=== PATIENT | female | born 1945 | race Caucasian/White ===

== ENCOUNTER 2016-08-14 14:36 | Emergency (ER) | payer MEDICARE, BC ==
[2016-08-14] MEDS ORDERED: MECLIZINE HCL 25 MG TABLET PO ONE (14:53)
[2016-08-14 14:54] LABS: ABSOLUTE LYMPHOCYTES (AUTO) 0.9 10^3/uL (0.5-4.7); ABSOLUTE MONOCYTES (AUTO) 0.2 10^3/uL (0.1-1.4); ABSOLUTE NEUT (AUTO) 5.7 10^3/uL (1.7-8.2); BASOPHILS % (AUTO) 0.6 % (0-2); EOSINOPHILS % (AUTO) 0.2 % (0-6); HEMATOCRIT 37.8 % (36.0-47.0); HEMOGLOBIN 12.8 g/dL (12.0-15.5); HGB HCT DIFFERENCE 0.6; LYMPHOCYTES % (AUTO) 12.7 % (13-45); MEAN CORPUSCULAR HEMOGLOBIN 28.9 pg (27.0-33.4); MEAN CORPUSCULAR HGB CONC 33.8 g/dL (32.0-36.0); MEAN CORPUSCULAR VOLUME 86 fl (80-97); MONOCYTES % (AUTO) 2.8 % (3-13); RED BLOOD COUNT 4.42 10^6/uL (3.72-5.28); SEGMENTED NEUTROPHILS % (AUTO) 83.7 % (42-78); WHITE BLOOD COUNT 6.8 10^3/uL (4.0-10.5)
[2016-08-14] MEDS ORDERED: NORMAL SALINE 500 ML IV ONE ×2 (14:56→16:41)
--- NOTE | 2016-08-14 14:56 | ER Document Report ---
ED General - General Stated Complaint: DIZZINESS TRAVEL OUTSIDE OF THE [place] IN LAST 30 DAYS: No - HPI Patient complains to provider of: dizziness and near-syncope nausea vomiting Notes: Patient coming in for nausea vomiting or syncopal episode dizziness. Patient states this morning workup took an Ultram however states her symptoms were ongoing for the ultrasound but worse at the taken Ultram. Patient states she has vomited multiple times. Patient states taking Ultram as that she is 4 weeks postop from back surgery. Patient otherwise states whenever she is milligrams sitting up states when she becomes dizzy. Patient denies any fevers chills diarrhea. Denies any sick contacts. Denies any recent travel. - Related Data Allergies/Adverse Reactions: codeine Allergy (Verified 08/14/16 15:54) Past Medical History - Social History Smoking Status: Unknown if Ever Smoked Family History: Reviewed & Not Pertinent - Past Medical History Cardiac Medical History: Reports: Hx Hypertension Pulmonary Medical History: Reports: Hx Asthma Past Surgical History: Reports: Hx Cholecystectomy, Hx Hysterectomy, Hx Orthopedic Surgery - L rotor cuff - Immunizations Hx Diphtheria, Pertussis, Tetanus Vaccination: Yes Review of Systems - Review of Systems Constitutional: No symptoms reported EENT: No symptoms reported Cardiovascular: Syncope Respiratory: No symptoms reported Gastrointestinal: No symptoms reported Genitourinary: No symptoms reported Female Genitourinary: No symptoms reported Musculoskeletal: No symptoms reported Skin: No symptoms reported Hematologic/Lymphatic: No symptoms reported Neurological/Psychological: No symptoms reported -: Yes All other systems reviewed and negative Physical Exam - Vital signs Vitals: Resp BP Pulse Ox 25 H 194/88 H 100 08/14/16 14:42 08/14/16 14:42 08/14/16 14:42 Interpretation: Normal - General General appearance: Appears well, Alert - HEENT Head: Normocephalic, Atraumatic Eyes: Normal Pupils: PERRL - Respiratory Respiratory status: No respiratory distress Chest status: Nontender Breath sounds: Normal Chest palpation: Normal - Cardiovascular Rhythm: Regular Heart sounds: Normal auscultation Murmur: No - Abdominal Inspection: Normal Distension: No distension Bowel sounds: Normal Tenderness: Nontender Organomegaly: No organomegaly - Back Back: Normal, Nontender - Extremities General upper extremity: Normal inspection, Nontender, Normal color, Normal ROM , Normal temperature General lower extremity: Normal inspection, Nontender, Normal color, Normal ROM , Normal temperature, Normal weight bearing. No: Mary's sign - Neurological Neuro grossly intact: Yes Cognition: Normal Orientation: AAOx4 Leta Coma Scale Eye Opening: Spontaneous [place] Coma Scale Verbal: Oriented Leta Coma Scale Motor: Obeys Commands [place] Coma Scale Total: 15 Speech: Normal Motor strength normal: LUE, RUE, LLE, RLE Sensory: Normal - Psychological Associated symptoms: Normal affect, Normal mood - Skin Skin Temperature: Warm Skin Moisture: Dry Skin Color: Normal Course - Re-evaluation Re-evalutation: 08/14/16 14:55 /Patient would need to get a CTA of her chest. Patient was to be sedated for the CTA. Spent patient that we are not doing sedation today is that she is complaining of dizziness I did not want to further cause her any harm her symptoms. Patient will receive IV fluids and urinalysis will be performed. 08/14/16 21:40 Patient signed a refusal treatment form as she was refusing to have a CTA. Patient has ambulated multiple times bathroom without difficulty. Patient does continue to complain of some nausea however she is able to tolerate orals at bedside. Repeat troponin is negative. At this time no clear etiology for the patient's symptoms no signs of sepsis severe infection troponins are negative. Patient was instructed to perform the Jason maneuver which he arrives home. Handout was given to the patient. Patient was also will be treated with Zofran for nausea meclizine for dizziness. Patient discharged home agrees to plan. - Vital Signs Vital signs: Temp Pulse Resp BP Pulse Ox 16 163/75 H 100 08/14/16 19:00 08/14/16 18:20 08/14/16 19:00 - Laboratory Result Diagrams: 08/14/16 14:47 08/14/16 14:47 Laboratory results interpreted by me: 08/14/16 08/14/16 08/14/16 14:47 14:47 18:19 Seg Neutrophils % 83.7 H Lymphocytes % 12.7 L Monocytes % 2.8 L Glucose 125 H Urine Blood SMALL H Discharge - Discharge Clinical Impression: Dizziness Nausea & vomiting Qualifiers: Vomiting type: unspecified Vomiting Intractability: unspecified Qualified Code( s): R11.2 - Nausea with vomiting, unspecified Instructions: Vertigo ([facility]), Meclizine ([facility]), Vomiting ([facility]), Near Syncopal Episode ([facility]) Additional Instructions: Take medication as prescribed. Please follow-up with the doctors provided or your primary care physician. Please drink plenty of water to stay hydrated. Please avoid any food with fat grease or oil. Pleases try the Jason maneuver in your discharge handout Prescriptions: Meclizine HCl [Antivert 25 mg Tablet] 25 mg PO TID PRN #21 tablet PRN Reason: Ondansetron [Zofran Odt 4 mg Tablet] 1 - 2 tab PO Q4H PRN #28 tab.rapdis PRN Reason: For Nausea/Vomiting
[2016-08-14 15:03] LABS: PROTHROMBIN TIME 12.3 SEC (11.4-15.4)
[2016-08-14] MEDS ORDERED: ONDANSETRON HCL INJ/PF 4 MG/2 ML SDV IV ONE (15:03)
[2016-08-14 15:11] LABS: ALANINE AMINOTRANSFERASE 18 U/L (9-52); ALBUMIN 4.2 g/dL (3.5-5.0); ALKALINE PHOSPHATASE 105 U/L (38-126); ANION GAP 14 (5-19); ASPARTATE AMINO TRANSFERASE 20 U/L (14-36); BILIRUBIN,DIRECT 0.1 mg/dL (0.0-0.4); BILIRUBIN,TOTAL 0.4 mg/dL (0.2-1.3); BLOOD UREA NITROGEN 11 mg/dL (7-20); CALCIUM 9.1 mg/dL (8.4-10.2); CARBON DIOXIDE 24 mmol/L (22-30); CHLORIDE 104 mmol/L (98-107); CREATINE KINASE 65 U/L (30-135); GLUCOSE 125 mg/dL (75-110); LIPASE 59.7 U/L (23-300); SODIUM 141.6 mmol/L (137-145); TOTAL PROTEIN 7.3 g/dL (6.3-8.2)
[2016-08-14 15:23] LABS: CREATINE KINASE MB 0.71 ng/mL (<4.55)
[2016-08-14 15:33] LABS: TROPONIN I < 0.012 ng/mL
[2016-08-14] MEDS ORDERED: METOCLOPRAMIDE HCL INJ/PF 10 MG/2 ML SDV IV ONE (16:26)
[2016-08-14] MEDS ORDERED: DIAZEPAM 2 MG TABLET PO ONE (16:36)
[2016-08-14] MEDS ORDERED: PROMETHAZINE HCL INJ 25 MG/1 ML VIAL IM ONE (18:10)
[2016-08-14 18:34] LABS: APPEARANCE,URINE CLEAR; BILIRUBIN,URINE NEGATIVE (NEGATIVE); GLUCOSE, URINE NEGATIVE (NEGATIVE); KETONES,URINE NEGATIVE (NEGATIVE); LEUKOCYTE ESTERASE,URINE NEGATIVE (NEGATIVE); NITRITE,URINE NEGATIVE (NEGATIVE); PROTEIN,URINE NEGATIVE (NEGATIVE); URINE SPECIFIC GRAVITY 1.002; UROBILINOGEN,URINE NEGATIVE mg/dL (<2.0)
[2016-08-14 19:34] VITALS: BP 163/75
--- NOTE | 2016-08-14 19:54 | EKG REPORT ---
SEVERITY:- ABNORMAL ECG - SINUS RHYTHM PROBABLE LEFT ATRIAL ABNORMALITY LEFT AXIS DEVIATION NONSPECIFIC ST-T CHANGES ANTERIOR LEADS. : Confirmed by: Haja Medina MD 14-Aug-2016 19:54:24
[2016-08-14] MEDS ORDERED: ONDANSETRON ODT 4 MG TAB (6 TAB/DSPK) PO PRN (20:40)
== END 2016-08-14 21:23 | disposition home or self-care (01) ==
LOC: ER 14:36
DX: R42 Dizziness and giddiness (principal); R11.2 Nausea with vomiting, unspecified
CPT/HCPCS: 93005; 99285; 96372; 96361; 96374; 96375; 36415; 82553; 82550; 83690; 85025; 85610; 80053; 81001; 84484; 71010; 93010; A9270 ×3; J2765; J2550; J2405; J7040; J3490

== ENCOUNTER → 2016-11-20 | Outpatient (CLI) | payer MEDICARE, BC ==
--- NOTE | 2016-11-21 17:01 | XCELERA REPORT ---
[address] [address] Lower Extremity Venous Evaluation Name: JENNIFER GARCIA Age: 71 yrs Gender: Female : 1945 Patient Status: Outpatient Patient Location: Study Date: 11/20/2016 04:28 PM Procedure: Color flow and duplex imaging of the veins of the left lower extremity as well as the right Common Femoral vein. Reason For Study: LEFT CALF PAIN Ordering Physician: CAROLIN REESE PA-C Performed By: Remberto Henry Right Sided Venous Evaluation The right common femoral vein is fully compressible. Spontaneous and phasic flow is present in the right common femoral vein. Left Sided Venous Evaluation Normal vessel filling wall to wall, compression and augmentation as well as Colour flow down to the infrageniculate veins. Interpretation Summary No duplex evidence of DVT or obstruction in the left lower extremity nor in the right Common Femoral vein. : CAROLIN REESE PA-C > Jesus Duarte
== END ==
LOC: SP 16:15
PROVIDERS: ATTEND Physician Assistant
DX: M79.662 Pain in left lower leg (principal)
CPT/HCPCS: 93971

== ENCOUNTER 2017-09-04 15:18 | Emergency (ER) | payer MEDICARE, BC ==
[2017-09-04] MEDS ORDERED: ONDANSETRON HCL INJ/PF 4 MG/2 ML SDV IV ONE (15:44)
[2017-09-04] MEDS ORDERED: NORMAL SALINE 1000 ML 1,000 ML IV ONE (15:44)
--- NOTE | 2017-09-04 15:46 | ER Document Report ---
ED Medical Screen (RME) - General Chief Complaint: Nausea/Vomiting Stated Complaint: VOMITING, DIARRHEA Time Seen by Provider: 09/04/17 15:39 Notes: 72-year-old female patient with onset morning about 3 AM of nausea vomiting diarrhea. She had vomiting about every 30 minutes for the next 20 hours. Her last vomiting was just after midnight early this morning. She continues to be quite nauseous. She has tried to drink only a half of a soda today. She is concerned about becoming dehydrated. There is no fever, the diarrhea is not much of a problem. I have greeted and performed a rapid initial assessment of this patient. A comprehensive ED assessment and evaluation of the patient, analysis of test results and completion of the medical decision making process will be conducted by additional ED providers. TRAVEL OUTSIDE OF THE [place] IN LAST 30 DAYS: No - Related Data Allergies/Adverse Reactions: codeine Allergy (Verified 09/04/17 15:39) Past Medical History - Social History Chew tobacco use (# tins/day): No Frequency of alcohol use: None Drug Abuse: None - Past Medical History Cardiac Medical History: Reports: Hx Hypertension Pulmonary Medical History: Reports: Hx Asthma Renal/ Medical History: Denies: Hx Peritoneal Dialysis Past Surgical History: Reports: Hx Cholecystectomy, Hx Hysterectomy, Hx Orthopedic Surgery - L rotor cuff - Immunizations Hx Diphtheria, Pertussis, Tetanus Vaccination: Yes Physical Exam - Vital signs Vitals: Temp Pulse BP Pulse Ox 98.3 F 71 141/59 H 96 09/04/17 15:30 09/04/17 15:30 09/04/17 15:30 09/04/17 15:30 Course - Vital Signs Vital signs: Temp Pulse Resp BP Pulse Ox 98.3 F 71 141/59 H 96 09/04/17 15:30 09/04/17 15:30 09/04/17 15:30 09/04/17 15:30
--- NOTE | 2017-09-04 16:16 | ER Document Report ---
ED General - General Chief Complaint: Nausea/Vomiting Stated Complaint: VOMITING, DIARRHEA Time Seen by Provider: 09/04/17 15:39 Mode of Arrival: Ambulatory Information source: Patient Notes: Patient presents emergency department with complaints of nausea vomiting diarrhea since . She reports last time she vomited was early this morning at 0030 and last diarrhea episode was last night at approximately 2330. She reports she is nauseated. She reports she has had half a can of Sprite. Has not had anything . Complains of some cramping. Reports nobody else at home is sick. Denies other symptoms such as cough chest pain pain with void urinary frequency. Patient looks good, nontoxic looking TRAVEL OUTSIDE OF THE [place] IN LAST 30 DAYS: No - HPI Onset: Other Onset/Duration: Sudden, Persistent Quality of pain: Cramping Severity: Mild Pain Level: 2 Associated symptoms: Diarrhea, Nausea, Vomiting Exacerbated by: Denies Relieved by: Denies Similar symptoms previously: No Recently seen / treated by doctor: No - Related Data Allergies/Adverse Reactions: codeine Allergy (Verified 09/04/17 15:39) Past Medical History - General Information source: Patient Last Menstrual Period: hyst - Social History Smoking Status: Never Smoker Chew tobacco use (# tins/day): No Frequency of alcohol use: None Drug Abuse: None Lives with: Family Family History: Reviewed & Not Pertinent Patient has suicidal ideation: No Patient has homicidal ideation: No - Past Medical History Cardiac Medical History: Reports: Hx Hypertension Pulmonary Medical History: Reports: Hx Asthma Renal/ Medical History: Denies: Hx Peritoneal Dialysis Past Surgical History: Reports: Hx Cholecystectomy, Hx Hysterectomy, Hx Orthopedic Surgery - L rotor cuff - Immunizations Hx Diphtheria, Pertussis, Tetanus Vaccination: Yes Review of Systems - Review of Systems Notes: Review HPI for review of systems., All other systems negative Physical Exam - Vital signs Vitals: Temp Pulse BP Pulse Ox 98.3 F 71 141/59 H 96 09/04/17 15:30 09/04/17 15:30 09/04/17 15:30 09/04/17 15:30 - Notes Notes: PHYSICAL EXAMINATION: GENERAL: Well-appearing and in no acute distress HEAD: Atraumatic, normocephalic. EYES: Pupils equal round, extraocular movements intact, sclera anicteric, conjunctiva are normal. ENT: nares patent, oropharynx clear without exudates. Moist mucous membranes. NECK: Normal range of motion, supple without lymphadenopathy LUNGS: CTAB and equal. No wheezes rales or rhonchi. HEART: Regular rate and rhythm without murmurs ABDOMEN: Soft, no tenderness. No guarding, no rebound BACK: Denies pain EXTREMITIES: Normal range of motion, no pitting edema. No cyanosis. NEUROLOGICAL: Cranial nerves grossly intact. Normal sensory/motor exams. PSYCH: Normal mood, normal affect. SKIN: Warm, Dry, normal turgor, no rashes or lesions noted Course - Re-evaluation Re-evalutation: 09/04/17 Labs unremarkable. IV fluids and nausea medicine given patient reports no further nausea. No vomiting or diarrhea. Patient taking p.o. fluids. She was instructed on labs instructed to follow-up with primary care provider she was instructed on medications and return to ED if vomiting and diarrhea return. She verbalized understanding. - Vital Signs Vital signs: Temp Pulse Resp BP Pulse Ox 97.5 F 72 17 143/62 H 98 09/04/17 17:16 09/04/17 17:16 09/04/17 17:16 09/04/17 17:16 09/04/17 17:16 - Laboratory Result Diagrams: 09/04/17 16:03 09/04/17 16:03 Laboratory results interpreted by me: 09/04/17 09/04/17 16:03 16:03 RDW 14.3 H Urine Urobilinogen 2.0 H Discharge - Discharge Clinical Impression: Nausea and vomiting Qualifiers: Vomiting type: unspecified Vomiting Intractability: non-intractable Qualified Code(s): R11.2 - Nausea with vomiting, unspecified Diarrhea Qualifiers: Diarrhea type: unspecified type Qualified Code(s): R19.7 - Diarrhea, unspecified Condition: Stable Disposition: HOME, SELF-CARE Instructions: Antinausea Medication ([facility]), Diarrhea, Nonspecific ([facility]), Intravenous (IV) Fluids ([facility]), Vomiting ([facility]) Additional Instructions: *You have been evaluated for nausea/vomiting/diarrhea *Take medication as prescribed for nausea *Over the counter anti-diarrheal as indicated *Ensure adequate fluid intake as discussed to prevent dehydration *Follow up with a primary care provider within 5 days for recheck *Return to ED for worsening condition, changes, needs, return of vomiting and diarrhea Forms: Elevated Blood Pressure Referrals: CLAUDIA DELATORRE MD [Primary Care Provider] - Follow up as needed
[2017-09-04 16:23] LABS: ABSOLUTE EOSINOPHILS # (AUTO) 0.1 10^3/uL (0.0-0.6); ABSOLUTE LYMPHOCYTES (AUTO) 1.4 10^3/uL (0.5-4.7); ABSOLUTE MONOCYTES (AUTO) 0.4 10^3/uL (0.1-1.4); ABSOLUTE NEUT (AUTO) 2.6 10^3/uL (1.7-8.2); BASOPHILS % (AUTO) 0.6 % (0-2); EOSINOPHILS % (AUTO) 1.5 % (0-6); HEMOGLOBIN 13.8 g/dL (12.0-15.5); LYMPHOCYTES % (AUTO) 30.1 % (13-45); MEAN CORPUSCULAR HGB CONC 33.7 g/dL (32.0-36.0); MEAN CORPUSCULAR VOLUME 86 fl (80-97); MONOCYTES % (AUTO) 9.5 % (3-13); PLATELET COUNT 306 10^3/uL (150-450); RED BLOOD COUNT 4.77 10^6/uL (3.72-5.28); RED CELL DISTRIBUTION WIDTH 14.3 % (11.5-14.0); SEGMENTED NEUTROPHILS % (AUTO) 58.3 % (42-78); TOTAL CELLS COUNTED % (AUTO) 100 %; WHITE BLOOD COUNT 4.5 10^3/uL (4.0-10.5)
[2017-09-04 16:32] LABS: APPEARANCE,URINE SLIGHTLY-CLOUDY; BILIRUBIN,URINE NEGATIVE (NEGATIVE); COLOR,URINE YELLOW; GLUCOSE, URINE NEGATIVE (NEGATIVE); KETONES,URINE NEGATIVE (NEGATIVE); LEUKOCYTE ESTERASE,URINE NEGATIVE (NEGATIVE); NITRITE,URINE NEGATIVE (NEGATIVE); PROTEIN,URINE NEGATIVE (NEGATIVE); URINE SPECIFIC GRAVITY 1.025
[2017-09-04 16:35] LABS: ALANINE AMINOTRANSFERASE 29 U/L (9-52); ALBUMIN 4.1 g/dL (3.5-5.0); ALKALINE PHOSPHATASE 96 U/L (38-126); ANION GAP 11 (5-19); ASPARTATE AMINO TRANSFERASE 33 U/L (14-36); BILIRUBIN,DIRECT 0.3 mg/dL (0.0-0.4); BILIRUBIN,TOTAL 0.3 mg/dL (0.2-1.3); BLOOD UREA NITROGEN 17 mg/dL (7-20); CALCIUM 9.2 mg/dL (8.4-10.2); CARBON DIOXIDE 30 mmol/L (22-30); CHLORIDE 102 mmol/L (98-107); GLUCOSE 101 mg/dL (75-110); POTASSIUM 3.6 mmol/L (3.6-5.0); SODIUM 142.6 mmol/L (137-145); TOTAL PROTEIN 7.4 g/dL (6.3-8.2)
[2017-09-04] MEDS ORDERED: ONDANSETRON ODT 4 MG TAB (6 TAB/ER DISP) PO PRN (16:57)
[2017-09-04 17:17] VITALS: BP 143/62
== END 2017-09-04 17:19 | disposition home or self-care (01) ==
LOC: ER 15:18
DX: R11.2 Nausea with vomiting, unspecified (principal); R19.7 Diarrhea, unspecified; R25.2 Cramp and spasm; I10 Essential (primary) hypertension; J45.909 Unspecified asthma, uncomplicated; Z90.49 Acquired absence of other specified parts of digestive tract; Z90.710 Acquired absence of both cervix and uterus; Z88.5 Allergy status to narcotic agent
CPT/HCPCS: 99283; 96361; 96374; 36415; 85025; 80053; 81001; J2405; J7030; A9270

== ENCOUNTER 2017-11-30 15:22 | Emergency (ER) | payer MEDICARE, BC ==
[2017-11-30 15:33] VITALS: BP 155/58
[2017-11-30] MEDS ORDERED: TRAMADOL HCL 50 MG TABLET PO ONE (15:50)
--- NOTE | 2017-11-30 15:54 | ER Document Report ---
ED Fall - General Chief Complaint: Fall Injury Stated Complaint: FALL/HIP INJURY Time Seen by Provider: 11/30/17 15:47 TRAVEL OUTSIDE OF THE [place] IN LAST 30 DAYS: No - HPI Notes: 72-year-old female presents status post fall with posterior lateral back and right hip injury. Sometime around 630 this morning patient was trying to climb back into a recliner in her 's room, he is staying in the hospital, when she fell off and struck her right hip and right lateral upper back. Complains of sudden onset severe right-sided pain, throbbing achy sharp, worse with motion. Able to bear weight. No head injury, no loss consciousness. No other modifying factors, no other associated symptoms, no other provocative or palliative factors. - Related data Allergies/Adverse Reactions: codeine Allergy (Verified 09/04/17 15:39) Past Medical History - Social History Smoking Status: Smoker,Current Status Unk Family History: Reviewed & Not Pertinent - Past Medical History Cardiac Medical History: Reports: Hx Hypertension Pulmonary Medical History: Reports: Hx Asthma Renal/ Medical History: Denies: Hx Peritoneal Dialysis Past Surgical History: Reports: Hx Cholecystectomy, Hx Hysterectomy, Hx Orthopedic Surgery - L rotor cuff - Immunizations Hx Diphtheria, Pertussis, Tetanus Vaccination: Yes Review of Systems - Review of Systems Notes: Review of systems as in history of present illness, otherwise no significant headache, chest pain, abdominal pain. Physical Exam - Vital signs Vitals: Temp Pulse Resp BP Pulse Ox 97.6 F 65 14 155/58 H 98 11/30/17 15:31 11/30/17 15:31 11/30/17 15:31 11/30/17 15:31 11/30/17 15:31 - Notes Notes: General: Well-developed, well-nourished HEENT: Normocephalic. No external trauma noted. No alvarenga sign, no hemotympanum. Mucosa is moist. No intraoral trauma. Neck: Midline trachea, no JVD. No midline cervical spine tenderness. No step- off or deformity. Chest: Normal excursion, no accessory muscle use. No gross trauma. Abdomen: Soft, nondistended. Nontender. No bruising. Pelvis: Stable. Vascular: Strong and symmetric upper and lower extremity pulses. Well-perfused extremities. Motor: Normal tone and power. Neurologic: Alert, nonfocal. Sensation symmetric and intact. Skin: No significant lacerations or purpura. Extremities: No cyanosis. No significant injury noted. Back: Right posterior lateral back tenderness noted about the ribs 7 and 8. No bruising or crepitation or step-off. Hip showed right greater trochanter tenderness, range of motion intact. Course - Re-evaluation Re-evalutation: 11/30/17 15:54 Appearing female sprain versus contusion versus fracture. Will obtain plain films of the chest/thorax, hip, treat pain, reassess. 11/30/17 16:40 Plain films of the chest and hip show no evidence of fracture. Patient received a single dose of Wellbutrin analgesics with substantial improvement. Discharged home with a prescription for NSAIDs, outpatient follow-up. - Vital Signs Vital signs: Temp Pulse Resp BP Pulse Ox 97.6 F 65 14 155/58 H 98 11/30/17 15:31 11/30/17 15:31 11/30/17 15:31 11/30/17 15:31 11/30/17 15:31 Discharge - Discharge Clinical Impression: Contusion, hip Qualifiers: Encounter type: initial encounter Laterality: right Qualified Code(s): S70.01XA - Contusion of right hip, initial encounter Contusion of thoracic wall Qualifiers: Encounter type: initial encounter Contusion of thoracic wall detail: back wall of thorax Laterality: right Qualified Code(s): S20.221A - Contusion of right back wall of thorax, initial encounter Instructions: Contusion ([facility]) Prescriptions: Naproxen 500 mg PO Q12 PRN #12 tablet PRN Reason: Referrals: CLAUDIA DELATORRE MD [Primary Care Provider] - Follow up as needed
--- NOTE | 2017-11-30 16:25 | RADIOLOGY REPORT (SQ) ---
EXAM DESCRIPTION: HIP RIGHT AP/LATERAL COMPLETED DATE/TIME: 11/30/2017 4:16 pm REASON FOR STUDY: trauma COMPARISON: None. NUMBER OF VIEWS: Two views. TECHNIQUE: AP pelvis and additional frog-leg view of the right hip. LIMITATIONS: None. FINDINGS: MINERALIZATION: Normal. RIGHT HIP: No fracture or dislocation. No worrisome bone lesions. LEFT HIP: No fracture or dislocation. No worrisome bone lesions. PUBIS AND ISCHIUM: No fracture. PELVIS: No fracture. SACRUM: No fracture or dislocation. No worrisome bone lesions. LOWER LUMBAR SPINE: No fracture or dislocation. No worrisome bone lesions. No significant disc disea se. SOFT TISSUES: No findings. OTHER: If an occult fracture suspected clinically, consider followup imaging. IMPRESSION: Nothing acute. No acute fracture identified. TECHNICAL DOCUMENTATION: JOB ID: [id number] [employer]- All Rights Reserved Reading location - IP/workstation name: [email or web address]
--- NOTE | 2017-11-30 16:27 | RADIOLOGY REPORT (SQ) ---
EXAM DESCRIPTION: CHEST 2 VIEWS COMPLETED DATE/TIME: 11/30/2017 4:16 pm REASON FOR STUDY: trauma COMPARISON: 08/18/2013 EXAM PARAMETERS: NUMBER OF VIEWS: two views TECHNIQUE: Digital Frontal and Lateral radiographic views of the chest acquired. RADIATION DOSE: NA LIMITATIONS: none FINDINGS: LUNGS AND PLEURA: No opacities, masses or pneumothorax. No pleural effusion. Incidentally noted is an azygos fissure. MEDIASTINUM AND HILAR STRUCTURES: No masses or contour abnormalities. HEART AND VASCULAR STRUCTURES: Heart normal size. No evidence for failure. BONES: No acute findings. HARDWARE: None in the chest. OTHER: No other significant finding. IMPRESSION: NO ACUTE RADIOGRAPHIC FINDING IN THE CHEST. TECHNICAL DOCUMENTATION: JOB ID: [id number] [employer]- All Rights Reserved Reading location - IP/workstation name: [email or web address]
== END 2017-11-30 17:02 | disposition home or self-care (01) ==
LOC: ER 15:22
DX: S70.01XA Contusion of right hip, initial encounter (principal); S20.221A Contusion of right back wall of thorax, initial encounter; W07.XXXA Fall from chair, initial encounter; Y93.89 Activity, other specified; Y92.230 Patient room in hospital as the place of occurrence of the external cause; I10 Essential (primary) hypertension; J45.909 Unspecified asthma, uncomplicated; Z88.5 Allergy status to narcotic agent
CPT/HCPCS: 71046; 99283

== ENCOUNTER → 2018-02-04 | Outpatient (CLI) | payer MEDICARE, BC ==
--- NOTE | 2018-02-11 12:53 | XCELERA REPORT ---
[address] [facility] [address] Lower Extremity Venous Evaluation Procedure: Color flow and duplex imaging bilaterally of the veins of the lower extremities as well as the Common Femoral veins. Right Sided Venous Evaluation Normal vessel filling wall to wall, compression and augmentation as well as Colour flow down to the infrageniculate veins. Left Sided Venous Evaluation Normal vessel filling wall to wall, compression and augmentation as well as Colour flow down to the infrageniculate veins. Interpretation Summary No duplex evidence of DVT or obstruction in the bilateral lower extremities. Name: JENNIFER GARCIA Age: 72 yrs Gender: Female : 1945 Patient Status: Outpatient Patient Location: Study Date: 02/04/2018 01:00 PM Reason For Study: SWELLING Ordering Physician: CAROLIN REESE PA-C Performed By: Calvin Wade : CAROLIN REESE PA-C > Jesus Duarte
== END ==
LOC: SP 12:33
PROVIDERS: ATTEND Physician Assistant
DX: M79.661 Pain in right lower leg (principal); M79.662 Pain in left lower leg
CPT/HCPCS: 93970

== ENCOUNTER 2018-04-01 16:12 | Emergency (ER) | payer MEDICARE, BC ==
[2018-04-01 16:36] VITALS: BP 174/68
[2018-04-01] MEDS ORDERED: DIAZEPAM 5 MG TABLET PO ONE (17:18)
[2018-04-01] MEDS ORDERED: KETOROLAC TROMETHAMINE 60 MG/2 ML SDV IM ONE (17:18)
--- NOTE | 2018-04-01 18:02 | RADIOLOGY REPORT (SQ) ---
EXAM DESCRIPTION: CT HEAD WITHOUT COMPLETED DATE/TIME: 04/01/2018 5:50 pm REASON FOR STUDY: Head injury COMPARISON: None. TECHNIQUE: Axial images acquired through the brain without intravenous contrast. Images reviewed wi th bone, brain and subdural windows. Additional sagittal and coronal reconstructions were generated. Images stored on PACS. All CT scanners at this facility use dose modulation, iterative reconstruction, and/or weight based d osing when appropriate to reduce radiation dose to as low as reasonably achievable (ALARA). [facility]: Dose Right [facility]: CareDose [facility]: Dose Right [facility]: Teradose 4D [facility]: [employer] RADIATION DOSE: CT Rad equipment meets quality standard of care and radiation dose reduction techniq ues were employed. CTDIvol: 53.2 mGy. DLP: 964 mGy-cm. mGy. LIMITATIONS: None. FINDINGS: VENTRICLES: Normal size and contour. CEREBRUM: No masses. No hemorrhage. No midline shift. No evidence for acute infarction. Normal gra y/white matter differentiation. No areas of low density in the white matter. CEREBELLUM: No masses. No hemorrhage. No alteration of density. No evidence for acute infarction. EXTRAAXIAL SPACES: No fluid collections. No masses. ORBITS AND GLOBE: No intra- or extraconal masses. Normal contour of globe without masses. CALVARIUM: No fracture. PARANASAL SINUSES: No fluid or mucosal thickening. SOFT TISSUES: No mass or hematoma. OTHER: No other significant finding. IMPRESSION: NORMAL BRAIN CT WITHOUT CONTRAST. EVIDENCE OF ACUTE STROKE: NO. COMMENT: Quality ID # [id number]: Final reports with documentation of one or more dose reduction techniques (e.g., Automated exposure control, adjustment of the mA and/or kV according to patient size, use of iterative reconstruction technique) TECHNICAL DOCUMENTATION: JOB ID: [id number] [employer]- All Rights Reserved Reading location - IP/workstation name: [email or web address]
--- NOTE | 2018-04-01 18:21 | ER Document Report ---
ED Headache - General Chief Complaint: Headache Stated Complaint: FALL/HEADACHE Time Seen by Provider: 04/01/18 17:17 Mode of Arrival: Ambulatory Information source: Patient Notes: History of Present Illness Chief Complaint: [headache] [ ] History obtained from [patient] 73 years old female had a fall few days ago since then having frontal headache, therefore present to the ED. She is not in any blood thinners. Denies any focal weakness numbness tingling sensation. Denies any neck pain neck stiffness. Denies any chest pain abdominal pain. No injury to the upper limbs or lower limbs. Symptoms began: [today] Onset: [gradual] Timing: [constant] Quality: ["pain"] No different than prior severe headaches Intensity: [severe, but not worst ever] Location: [frontal] Aggravating factors: [none] Relieving factors: [none] Denies neck pain or stiffness Denies rash Denies visual loss or eye pain. Denies tick bite Denies head injury Denies weakness, numbness, incontinence, seizure, LOC Review of systems : All other systems negative as reviewed. CONSTITUTIONAL No fever. EYES No eye pain. ENT No URI symptoms, No sore throat, No ear pain. CARDIOVASCULAR No chest pain, No palpitations, No edema. RESPIRATORY No Cough, No SOB, No wheezing. GASTROINTESTINAL No abdominal pain, No nausea, No vomiting, No diarrhea, No constipation, No melena, No rectal bleeding. GENITOURINARY No UTI symptoms. MUSCULOSKELETAL No back pain. SKIN No Rash. NEUROLOGIC No paralysis, No parathesias. ENDOCRINE No polyuria. HEMO/LYMPATIC Patient does not bruise easily. PSYCHIATRIC No depression. Physical Exam CONSTITUTIONAL Vital signs reviewed, Comfortable, Alert and oriented X 3. HEAD Atraumatic, Normal cephalic. EYES No discharge from eye, Sclera are not injected, Extraocular muscles intact, Conjunctiva are normal.perrl,2mm, no photophobia, no nystagmus, fundi wnl. ENT Ears normal to inspection, Nose examination normal, Oropharynx normal, Mucous membranes pink, moist, normal in color. NECK Paraspinal muscular tenderness noted Normal inspection, supple, Normal ROM, No jugular venous distention, No meningeal signs, no carotid bruit or tenderness. RESPIRATORY/CHEST Chest is non-tender, Breath sounds normal, No respiratory distress. CARDIOVASCULAR RRR, Heart sounds normal. ABDOMEN Abdomen is non-tender, No masses, Bowel sounds normal, No distension, No peritoneal signs. BACK Normal inspection. UPPER EXTREMITY Inspection normal, No cyanosis/clubbing/edema. LOWER EXTREMITY Inspection normal, No cyanosis/clubbing/edema, No calf tenderness. NEURO cn intact, no astreixis, no pronator drift, finger to nose testing coordinated bilaterally, 1+ deep tendon reflexes x 4 ext, down going babinski bilaterally , normal speech, Motor exam normal, Sensory exam normal. SKIN Skin is warm and dry, No rash. LYMPHATIC No adenopathy in neck. PSYCHIATRIC Normal affect. TRAVEL OUTSIDE OF THE [place] IN LAST 30 DAYS: No - HPI Notes: Dictated - Related Data Allergies/Adverse Reactions: ciprofloxacin [From Cipro] Allergy (Verified 04/01/18 17:15) codeine Allergy (Verified 04/01/18 17:08) Past Medical History - Social History Smoking Status: Never Smoker Chew tobacco use (# tins/day): No Frequency of alcohol use: None Drug Abuse: None Lives with: Family Family History: Reviewed & Not Pertinent Patient has suicidal ideation: No Patient has homicidal ideation: No - Past Medical History Cardiac Medical History: Reports: Hx Hypertension Pulmonary Medical History: Reports: Hx Asthma Renal/ Medical History: Denies: Hx Peritoneal Dialysis Past Surgical History: Reports: Hx Cholecystectomy, Hx Hysterectomy, Hx Neurologic Surgery - Neck, Hx Orthopedic Surgery - L rotor cuff - Immunizations Hx Diphtheria, Pertussis, Tetanus Vaccination: Yes Review of Systems - Review of Systems Notes: Dictated Physical Exam - Vital signs Vitals: Temp Pulse Resp BP Pulse Ox 97.6 F 72 18 174/68 H 95 04/01/18 16:34 04/01/18 16:34 04/01/18 16:34 04/01/18 16:34 04/01/18 16:34 - Notes Notes: Dictated Course - Vital Signs Vital signs: Temp Pulse Resp BP Pulse Ox 97.6 F 72 18 174/68 H 95 04/01/18 16:34 04/01/18 16:34 04/01/18 16:34 04/01/18 16:34 04/01/18 16:34 - Diagnostic Test Radiology reviewed: Reports reviewed - CT of the head reported by radiologist as no intracranial bleed Discharge - Discharge Clinical Impression: Headache Qualifiers: Headache type: other headache syndrome Qualified Code(s): G44.89 - Other headache syndrome Cervical sprain Qualifiers: Encounter type: initial encounter Qualified Code(s): S13.9XXA - Sprain of joints and ligaments of unspecified parts of neck, initial encounter Condition: Fair Disposition: HOME, SELF-CARE Instructions: Headache ([facility]), Sprain ([facility]) Prescriptions: Baclofen [Baclofen 10 mg Tablet] 10 mg PO TID #30 tab Naproxen Sodium [Naproxen Sodium ER] 500 mg PO DAILY #30 tablet.sa Referrals: CAROLIN REESE PA-C [Primary Care Provider] - Follow up as needed
== END 2018-04-01 18:41 | disposition home or self-care (01) ==
LOC: ER 16:12
DX: S13.9XXA Sprain of joints and ligaments of unspecified parts of neck, initial encounter (principal); G44.89 Other headache syndrome; X58.XXXA Exposure to other specified factors, initial encounter; I10 Essential (primary) hypertension; J45.909 Unspecified asthma, uncomplicated
CPT/HCPCS: 99284; 96372; 70450; A9270; J1885